=== PATIENT | male | born 1985 | race Caucasian/White ===

== ENCOUNTER 2021-02-04 11:03 | Outpatient (REF) | payer OTHER, SELFPAY ==
--- NOTE | ~2021-02-04 | XR_ITS ---
EXAMINATION: XR CHEST CLINICAL INFORMATION: Encounter for general adult medical exam COMPARISON: None TECHNIQUE: 2 views of the chest were obtained. FINDINGS: No significant abnormality is noted involving the heart, lungs, mediastinum, bony thorax or soft tissues. XR/XR chest 2V IMPRESSION: Unremarkable examination.
== END 2021-02-04 11:04 | disposition home or self-care (01) ==
LOC: HO.HMGCX 11:03
PROVIDERS: PCP Internal Medicine; Visit Provider Internal Medicine
DX: Z13.89 Encounter for screening for other disorder (principal)
CPT/HCPCS: 71046

== ENCOUNTER 2021-02-06 06:57 | Outpatient (REF) | payer OTHER, SELFPAY ==
[2021-02-06 11:33] LABS: Hematocrit 47.1 % (42-52); Hemoglobin 15.4 g/dl (14.0-18.0); Mean Corpuscular HGB Conc 32.7 g/dl (31.0-36.0); Mean Corpuscular Hemoglobin 30.3 pg (27.0-33.0); Mean Corpuscular Volume 92.5 fL (80-98); Mean Platelet Volume 11.1 fL (9.4-12.4); Platelet Count 319 X10*3/uL (160-400); Red Blood Count 5.09 X10*6/uL (4.60-5.80); Red Cell Distribution Width 13.3 % (11.0-16.0); White Blood Count 11.8 X10*3/uL (4.8-10.8)
[2021-02-06 11:49] LABS: Appearance Urine CLOUDY; Color Urine STRAW; Glucose Urine UA NEG (NEG); Leukocyte Esterase Urine NEG (NEG); Nitrite Urine NEG (NEG); Specific Gravity - Urine 1.025 (1.005-1.025); Urine Blood NEG (NEG); Urine Ketones NEG (NEG); Urine Protein NEG (NEG-TRACE)
[2021-02-06 11:54] LABS: Alanine Aminotransferase 39 U/L (0-40); Albumin Level 4.6 g/dL (3.5-5.0); Alkaline Phosphatase 59 U/L (39-117); Anion Gap 15 (12-20); Aspartate Amino Transferase 26 U/L (5-37); Bilirubin Total 0.5 mg/dL (0.0-1.0); Blood Urea Nitrogen 20 mg/dL (9-16); Calcium 9.8 mg/dL (8.4-10.2); Carbon Dioxide 25 mmol/L (22-29); Chloride 104 mmol/L (96-108); Cholesterol 231 mg/dL; Estimated Glomerular Filt Rate > 60; Glucose Fasting 93 mg/dL (60-99); HDL Cholesterol 46 mg/dL; LDL Cholesterol Calculated 146 mg/dl; Potassium 4.8 mmol/L (3.3-5.1); Sodium 139 mmol/L (135-145); Total Protein 7.6 g/dL (6.5-8.0); Triglycerides 196 mg/dL
[2021-02-06 12:10] LABS: Amorphous Sediment Urine 4+ /LPF; RBC Urine 0 /HPF (0); WBC Urine 0 /HPF (0-4)
[2021-02-06 12:17] LABS: TSH reflex Free T4 3.23 uIU/mL (0.32-4.0)
== END 2021-02-06 06:58 | disposition home or self-care (01) ==
LOC: HO.HMGCLDS 06:57
PROVIDERS: PCP Internal Medicine; Visit Provider Internal Medicine
DX: Z00.00 Encounter for general adult medical examination without abnormal findings (principal); G43.909 Migraine, unspecified, not intractable, without status migrainosus
CPT/HCPCS: 36415; 80053; 80061; 81001; 84443; 85027

== ENCOUNTER → 2021-02-17 07:00 | Outpatient (REF) | payer OTHER, SELFPAY | LOC: HO.SL 07:00 | PROVIDERS: PCP Internal Medicine; Visit Provider Internal Medicine | DX: G47.33 Obstructive sleep apnea (adult) (pediatric) (principal); G47.10 Hypersomnia, unspecified; I10 Essential (primary) hypertension; E66.3 Overweight | CPT/HCPCS: 95806 ==

== ENCOUNTER → 2021-06-09 13:21 | Outpatient (BNVA) | payer OTHER, SELFPAY | PROVIDERS: PCP Internal Medicine; Visit Provider Internal Medicine | DX: G47.33 Obstructive sleep apnea (adult) (pediatric) (principal); J45.909 Unspecified asthma, uncomplicated; E66.01 Morbid (severe) obesity due to excess calories; Z68.41 Body mass index [BMI] 40.0-44.9, adult | CPT/HCPCS: 99202 ==

== ENCOUNTER → 2021-11-10 09:07 | Outpatient (BNVA) | payer OTHER, SELFPAY | PROVIDERS: PCP Internal Medicine; Visit Provider Dietitian, Registered | DX: E66.01 Morbid (severe) obesity due to excess calories (principal); Z68.41 Body mass index [BMI] 40.0-44.9, adult; Z71.3 Dietary counseling and surveillance | CPT/HCPCS: 97802 ==

== ENCOUNTER → 2021-12-15 10:43 | Outpatient (BNVA) | payer OTHER, SELFPAY | PROVIDERS: PCP Internal Medicine; Visit Provider Internal Medicine | DX: E66.01 Morbid (severe) obesity due to excess calories (principal); Z68.41 Body mass index [BMI] 40.0-44.9, adult; G47.33 Obstructive sleep apnea (adult) (pediatric); J45.909 Unspecified asthma, uncomplicated | CPT/HCPCS: 97803; 99212 ==

== ENCOUNTER 2022-07-27 08:25 | Outpatient (REF) | payer OTHER, SELFPAY ==
[2022-07-27 11:31] LABS: MANUAL DIFF FLAG NO
[2022-07-27 11:42] LABS: Basophils Absolute Auto 0.1 X10*3/uL (0.0-0.2); Basophils Percent Auto 0.8 % (0-2); Eosinophils Absolute Auto 0.3 X10*3/uL (0.0-0.4); Eosinophils Percent Auto 2.6 % (0-4); Hematocrit 44.2 % (42.0-52.0); Hemoglobin 14.6 g/dl (14.0-18.0); Imm Gran Abs Auto 0.07 X10*3/uL (0.00-0.03); Imm Gran Pct Auto 0.6 % (0.0-0.4); Lymphocytes Absolute Auto 4.6 X10*3/uL (1.2-4.9); Lymphocytes Percent Auto 38.8 % (20-40); Mean Corpuscular Hemoglobin 30.6 pg (27.0-33.0); Mean Corpuscular Volume 92.7 fL (80.0-98.0); Mean Platelet Volume 10.9 fL (9.4-12.4); Monocytes Percent Auto 8.2 % (2-11); Neutrophils Absolute Auto 5.8 x10*3/uL (2.0-8.3); Platelet Count 333 X10*3/uL (160-400); Red Blood Count 4.77 X10*6/uL (4.60-5.80); Red Cell Distribution Width 13.6 % (11.0-16.0); White Blood Count 11.8 X10*3/uL (4.8-10.8)
[2022-07-27 12:29] LABS: Alanine Aminotransferase 29 U/L (0-40); Albumin Level 4.4 g/dL (3.5-5.0); Alkaline Phosphatase 61 U/L (39-117); Anion Gap 14 (12-20); Aspartate Amino Transferase 25 U/L (5-37); Bilirubin Total 0.6 mg/dL (0.0-1.0); Blood Urea Nitrogen 17 mg/dL (9-16); Calcium 9.2 mg/dL (8.4-10.2); Carbon Dioxide 24 mmol/L (22-29); Chloride 105 mmol/L (96-108); Cholesterol 215 mg/dL; Estimated Glomerular Filt Rate > 60; Glucose Fasting 100 mg/dL (60-99); HDL Cholesterol 38 mg/dL; LDL Cholesterol Calculated 145 mg/dl; Sodium 138 mmol/L (135-145); Total Protein 7.3 g/dL (6.5-8.0); Triglycerides 162 mg/dL
== END 2022-07-27 08:26 | disposition home or self-care (01) ==
LOC: HO.HMGCLDS 08:25
PROVIDERS: PCP Internal Medicine; Visit Provider Internal Medicine
DX: E66.3 Overweight (principal); E78.5 Hyperlipidemia, unspecified; I10 Essential (primary) hypertension
CPT/HCPCS: 36415; 80053; 80061; 85025

== ENCOUNTER 2025-03-20 12:49 | Outpatient (AMB) | payer OTHER, SELFPAY ==
[2025-03-20 13:06] VITALS: BP 128/80; PULSE 84; RESP 18; TEMP 36.7; O2SAT 98; BMI 43.7
--- NOTE | 2025-03-20 13:06 | MHC.PC.OV ---
Vital Signs 03/20/25 13:06 Height 5 ft 9 in Weight 296 lb BMI 43.7 BP 128/80 Blood Pressure Location Lt brachial Position Sitting Respiration 18 Pulse 84 Pulse Source Pulse Oximeter Temp 98.1 F Temp Source Oral Pulse Oximetry (%) 98 Oxygen Delivery Method Room Air Intake Visit Reasons: Annual exam Intake Note: Pt is here today for PE. Allergies bacitracin (From Triple Antibiotic) Allergy (Mild, Verified 03/20/25 13:36) Rash neomycin (From Triple Antibiotic) Allergy (Mild, Verified 03/20/25 13:36) Rash polymyxin B (From Triple Antibiotic) Allergy (Mild, Verified 03/20/25 13:36) Rash Medication List - Last Reconciled 03/20/25 by Josi Xavier MD fluticasone propionate 110 mcg/actuation (Flovent HFA) 1 puff inhalation Q12H Proventil HFA 90 mcg/actuation (albuterol sulfate) 2 puffs inhalation QID PRN NS Tobacco use date assessed: 03/20/25 Dental Screening Dental Screen Date: 03/20/25 Did you have a dental visit in the last 12 months?: No Did you have a dental problem in the last 6 months where you did not have access to dental care?: Yes Was dental information given to patient?: Yes HPI Annual exam HPI Details Pt presents for PE. Pt c/o L side lower mid back discomfort not related to activity on and off lasting a few minutes to hours, improved after stretching. Patient denies pain radiating to lower extremity dysuria urinary frequency hematuria abdominal pain. Patient reports using Flovent once a day for chronic asthma and having episodes of some congestion and wheezing on and off. Patient has not been using rescue inhaler. He smokes occasionally but not daily. 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 1. Little interest or pleasure in doing things: not at all 2. Feeling down, depressed, or hopeless: not at all 3. Trouble falling or staying asleep, or sleeping too much: several days 4. Feeling tired or having little energy: several days 5. Poor appetite or overeating: several days 6. Feeling bad about yourself - or that you are a failure or have let yourself or your family down: not at all 7. Trouble concentrating on things, such as reading the newspaper or watching television: not at all 8. Moving or speaking so slowly that other people could have noticed. Or the opposite - being so fidgety or restless that you have been moving around a lot more than usual: not at all 9. Thoughts that you would be better off or of hurting yourself in some way: not at all Total score: 3 Depression Screening Interpretation: Negative Depression Screening Done: Yes 44313 - PHQ-9 Billing: Yes Source: Developed by Drs. Gelacio Strickland, Clemencia Butterfield, Shoaib Fajardo and colleagues, with an educational herve from [employer]. Thrive Questionnaire Date Thrive assessed: 03/20/25 I am a: Patient What is your living situation today?: I have a steady place to live Within the past 12 months, did the food you bought not last and you didn't have the money to get more?: Never true Within the past 12 months, did you worry whether your food would run out before you got money to buy more?: Never true Do you have trouble paying for medicines?: No Do you have trouble getting transportation to medical appointments?: No Do you have trouble paying your heating and electricity bill?: No Do you have trouble taking care of your child, family member or friend?: No Do you have trouble with day-to-day activities such as bathing, preparing meals, shopping, managing finances, etc.?: No Are you currently unemployed and looking for a job?: No Are you interested in more education?: No Please select the resources that you would like help with: None Currently or been in a relationship where the following occur: No concerns reported THRIVE Score: 0 AUDIT C Alcohol Use Questionnaire (AUDIT-C) 1. How often do you have a drink containing alcohol?: Never Total Score: 0 XIOMARA-7 AMB Questionnaire XIOMARA-7 Date XIOMARA - 7 assessed: 03/20/25 Feeling nervous, anxious, or on edge: 0 = Not at all Not being able to stop or control worryin = Not at all Worrying too much about different things: 0 = Not at all Trouble relaxin = Not at all Being so restless that it is hard to sit still: 0 = Not at all Becoming easily annoyed or irritable: 0 = Not at all Feeling afraid as if something awful might happen: 0 = Not at all Total XIOMARA-7 score (0-4 normal; 5-9 mild; 10-14 moderate; 15-21 severe): 0 Source: Developed by Drs. Gelacio Strickland, Clemencia Butterfield, Shoaib Fajardo and colleagues, with an educational herve from [employer]. XIOMARA-7 Assessment Billing XIOMARA-7 Assessment Tool: XIOMARA-7 Assessment 51520 Review of Systems Const All systems reviewed & are unremarkable except as noted in HPI and below Eyes Reports no additional complaints ENT Reports no additional complaints Card Reports no additional complaints Resp Reports no additional complaints GI Reports no additional complaints Reports no additional complaints Physical exam (Primary Care) Vital Signs: Last Vital Signs Temp 98.1 F 03/20/25 13:06 Pulse 84 03/20/25 13:06 Resp 18 03/20/25 13:06 BP 128/80 03/20/25 13:06 Pulse Ox 98 03/20/25 13:06 Oxygen Delivery Method Room Air 03/20/25 13:06 BMI result Body Mass Index 43.7 Tobacco/Smoking Status: Tobacco use Status Tobacco use date assessed 03/20/25 03/20/25 13:24 Patient Tobacco Use Status Current someday Tobacco 03/20/25 13:40 Tobacco use type Cigarette 03/20/25 13:40 e-Cigarette/Vaping Use Never Used 03/20/25 13:07 PHQ-9: PHQ-9 Score PHQ-9: Total score 3 03/20/25 13:54 Depression Screening Interpretation: Negative Thrive Assessment: Date of Thrive Assessment Date Thrive assessed 03/20/25 03/20/25 13:24 Currently or been in a relationship where the following occur: No concerns reported Const General: no acute distress HENMT Head: Yes normal to inspection General nose exam: Normal external nose present Face and sinus: Yes normal facial exam Throat: Yes posterior oropharynx normal Eyes General: appearance normal, both eyes and all related structures Neck Neck: Yes no lymphadenopathy and Yes supple Resp Effort & Inspection: normal respiratory effort Auscultation: clear to auscultation bilaterally Cardio Rhythm: regular rhythm Heart sounds: S1 normal heart sound present and S2 normal heart sound present GI Inspection: Yes normal to inspection Palpation (GI): Soft to palpation Percussion: Yes normal to percussion Auscultation: normal bowel sounds Back/Spine/Pelvis Other: This is a full range of motion lumbar spine no paraspinal tenderness, straight leg rising 90 degrees bilaterally Thoracic/Lumbar Spine: thoracic and lumbar spine normal to inspection Coding Level of Care Code Est Pt Prev Care 40-64y(16446) Diagnoses Annual physical exam Z00.00 Hyperlipidemia E78.5 LUPE (obstructive sleep apnea) G47.33 Asthma J45.909 Morbid obesity E66.01 Additional Codes XIOMARA-7 Assessment Billing - XIOMARA-7 Assessment Tool: XIOMARA-7 Assessment 75604 ([id number]) PHQ-9 - 42148 - PHQ-9 Billing: Yes ([id number]) Assessment & Plan Assessment & Plan (1) Annual physical exam: Code(s): Z00.00 - Encounter for general adult medical examination without abnormal findings Category: Medical Plan: well balanced diet, exercise, weight loss discussed. Patient will return for fasting blood work (2) Hyperlipidemia: Code(s): E78.5 - Hyperlipidemia, unspecified Category: Medical Plan: low cholesterol diet, increase physical activity and weight loss discussed with the patient (3) LUPE (obstructive sleep apnea): Comment: Moderately severe obstructive sleep apnea, with TST AHI 19.7 and moderate amount of snoring. HAS BEEN VERY COMPLIANT TO USE CPAP. Current settings: Nasal pillows , APAP setting of 6-16 cm. Working very well. Code(s): G47.33 - Obstructive sleep apnea (adult) (pediatric) Category: Medical Plan: Continue CPAP (4) Asthma: Comment: He has mild, chronic bronchial asthma, well controlled with current medication. [place] : Flovent-110 1 inhalation b.i.d. ProAir HFA 2 puffs Q 4-6 hours only p.r.n.. Code(s): J45.909 - Unspecified asthma, uncomplicated Category: Medical Plan: Change Flovent to Breo 100/25. Patient was advised to use albuterol as needed and he will follow-up in 2 months (5) Morbid obesity: Code(s): E66.01 - Morbid (severe) obesity due to excess calories Category: Medical Plan: Decreasing caloric intake increasing physical activity discussed with the patient Orders: Orders Comprehensive [place]. Panel Fast Today E78.5 - Hyperlipidemia, unspecified, Z00.00 - Encounter for general adult medical examination without abnormal findings Lipid Panel Today E78.5 - Hyperlipidemia, unspecified, Z00.00 - Encounter for general adult medical examination without abnormal findings Complete Blood Count Auto Diff Today E78.5 - Hyperlipidemia, unspecified, Z00.00 - Encounter for general adult medical examination without abnormal findings Hemoglobin A1c Today E78.5 - Hyperlipidemia, unspecified, Z00.00 - Encounter for general adult medical examination without abnormal findings UA w Microscopic Today E78.5 - Hyperlipidemia, unspecified, Z00.00 - Encounter for general adult medical examination without abnormal findings Medications: New fluticasone furoate-vilanterol 100-25 mcg/dose (Breo Ellipta) 1 inh inhalation DAILY 60 ea 2RF Changed From Proventil HFA 90 mcg/actuation (albuterol sulfate) 2 puffs inhalation QID PRN 6.7 grams 3RF shortness of breath or wheezing NS To albuterol sulfate 90 mcg/actuation (Proventil HFA) 2 puffs inhalation QID PRN 6.7 grams 3RF shortness of breath or wheezing 30 days
== END 2025-03-20 15:08 | disposition home or self-care (01) ==
LOC: HO.HMCC 12:50
PROVIDERS: PCP Internal Medicine; Visit Provider Internal Medicine
DX: Z00.00 Encounter for general adult medical examination without abnormal findings (principal); E66.01 Morbid (severe) obesity due to excess calories; Z68.41 Body mass index [BMI] 40.0-44.9, adult; E78.5 Hyperlipidemia, unspecified; G47.33 Obstructive sleep apnea (adult) (pediatric); J45.909 Unspecified asthma, uncomplicated

== ENCOUNTER → 2025-03-20 12:49 | Outpatient (BNVA) | payer OTHER, SELFPAY | PROVIDERS: PCP Internal Medicine; Visit Provider Internal Medicine | DX: Z00.00 Encounter for general adult medical examination without abnormal findings (principal); M54.50 Low back pain, unspecified; J45.909 Unspecified asthma, uncomplicated; E78.5 Hyperlipidemia, unspecified; G47.33 Obstructive sleep apnea (adult) (pediatric); E66.01 Morbid (severe) obesity due to excess calories; F17.210 Nicotine dependence, cigarettes, uncomplicated; Z68.41 Body mass index [BMI] 40.0-44.9, adult | CPT/HCPCS: 96127; 99396 ==

== ENCOUNTER 2025-05-20 08:45 | Outpatient (REF) | payer OTHER, SELFPAY ==
[2025-05-20 10:26] LABS: MANUAL DIFF FLAG NO
[2025-05-20 10:41] LABS: Hematocrit 45.8 % (42.0-52.0); Hemoglobin 14.9 g/dl (14.0-18.0); Imm Gran Abs Auto 0.08 X10*3/uL (0.00-0.03); Imm Gran Pct Auto 0.7 % (0.0-0.4); Lymphocytes Absolute Auto 3.9 X10*3/uL (1.2-4.9); Mean Corpuscular HGB Conc 32.5 g/dl (31.0-36.0); Mean Corpuscular Hemoglobin 30.0 pg (27.0-33.0); Mean Corpuscular Volume 92.2 fL (80.0-98.0); NRBC Abs Auto 0.000 X10*3/uL (0.0-0.012); NRBC Pct Auto 0.0 /100WBC (0.0-0.2); Platelet Count 308 X10*3/uL (160-400); Red Blood Count 4.97 X10*6/uL (4.60-5.80); White Blood Count 11.1 X10*3/uL (4.8-10.8)
[2025-05-20 11:05] LABS: Alanine Aminotransferase 27 U/L (0-40); Albumin Level 4.7 g/dL (3.5-5.0); Alkaline Phosphatase 76 U/L (39-117); Anion Gap 13 (12-20); Aspartate Amino Transferase 28 U/L (5-37); Blood Urea Nitrogen 16 mg/dL (9-16); Calcium 9.3 mg/dL (8.4-10.2); Carbon Dioxide 25 mmol/L (22-29); Chloride 108 mmol/L (96-108); Cholesterol 211 mg/dL (<200); Estimated Glomerular Filt Rate > 60; HDL Cholesterol 42 mg/dL (>40); Potassium 4.0 mmol/L (3.3-5.1); Sodium 142 mmol/L (135-145); Total Protein 7.7 g/dL (6.5-8.0); Triglycerides 174 mg/dL (<150)
== END 2025-05-20 08:46 | disposition home or self-care (01) ==
LOC: HO.HMGCLDS 08:45
PROVIDERS: PCP Internal Medicine; Visit Provider Internal Medicine
DX: Z00.00 Encounter for general adult medical examination without abnormal findings (principal); E78.5 Hyperlipidemia, unspecified
CPT/HCPCS: 36415; 80053; 80061; 83036; 85025

== ENCOUNTER 2025-05-21 11:42 | Outpatient (AMB) | payer OTHER, SELFPAY ==
--- NOTE | 2025-05-21 11:44 | A.OFFPC_ITS ---
Vital Signs 05/21/25 11:45 Height 5 ft 9 in Weight 298 lb BMI 44.0 BP 126/76 Blood Pressure Location Lt brachial Position Sitting Respiration 17 Pulse 82 Pulse Source Pulse Oximeter Temp 97.3 F Temp Source Oral Pulse Oximetry (%) 97 Oxygen Delivery Method Room Air Intake Visit Reasons: 2 month follow up Intake Note: Pt is here today for 2 months follow up visit. Allergies bacitracin (From Triple Antibiotic) Allergy (Mild, Verified 05/21/25 11:48) Rash neomycin (From Triple Antibiotic) Allergy (Mild, Verified 05/21/25 11:48) Rash polymyxin B (From Triple Antibiotic) Allergy (Mild, Verified 05/21/25 11:48) Rash Medication List - Last Reconciled 05/21/25 by Josi Xavier MD albuterol sulfate 90 mcg/actuation (Proventil HFA) 2 puffs inhalation QID PRN 30 days fluticasone furoate-vilanterol 100-25 mcg/dose (Breo Ellipta) 1 inh inhalation DAILY Tobacco use date assessed: 05/21/25 Dental Screening Dental Screen Date: 03/20/25 HPI 2 month follow up HPI Details Patient presents for the follow-up of chronic asthma controlled on Breo. Patient complains of intermittent chronic left-sided lower back pain occasionally radiating to left buttock worse in the afternoon after sitting on a couch for few hours. Patient denies pain radiating to lower extremities weakness or numbness in extremities. 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 Patient Tobacco Use Status: Current someday Tobacco user Tobacco use type: Cigarette e-Cigarette/Vaping Use: Never Used service: No Current occupational status: employed Cognitive needs: No Hearing needs: No Vision needs: No Questionnaire Thrive Questionnaire Date Thrive assessed: 03/20/25 I am a: Patient What is your living situation today?: I have a steady place to live Within the past 12 months, did the food you bought not last and you didn't have the money to get more?: Never true Within the past 12 months, did you worry whether your food would run out before you got money to buy more?: Never true Do you have trouble paying for medicines?: No Do you have trouble getting transportation to medical appointments?: No Do you have trouble paying your heating and electricity bill?: No Do you have trouble taking care of your child, family member or friend?: No Do you have trouble with day-to-day activities such as bathing, preparing meals, shopping, managing finances, etc.?: No Are you currently unemployed and looking for a job?: No Are you interested in more education?: No Currently or been in a relationship where the following occur: No concerns reported THRIVE Score: 0 AUDIT C Alcohol Use Questionnaire (AUDIT-C) 1. How often do you have a drink containing alcohol?: Never 3. How often do you have six or more drinks on one occasion?: Never Total Score: 0 XIOMARA-7 AMB Questionnaire XIOMARA-7 Date XIOMARA - 7 assessed: 03/20/25 Source: Developed by Drs. Gelacio Strickland, Clemencia Butterfield, Shoaib Fajardo and colleagues, with an educational herve from [employer]. Review of Systems Const All systems reviewed & are unremarkable except as noted in HPI and below Eyes Reports no additional complaints ENT Reports no additional complaints Card Reports no additional complaints Resp Reports no additional complaints GI Reports no additional complaints Physical exam (Primary Care) Vital Signs: Last Vital Signs Temp 97.3 F 05/21/25 11:45 Pulse 82 05/21/25 11:45 Resp 17 05/21/25 11:45 BP 126/76 05/21/25 11:45 Pulse Ox 97 05/21/25 11:45 Oxygen Delivery Method Room Air 05/21/25 11:45 BMI result Body Mass Index 44.0 Tobacco/Smoking Status: Tobacco use Status Tobacco use date assessed 05/21/25 05/21/25 11:51 Patient Tobacco Use Status Current someday Tobacco 05/21/25 11:51 Tobacco use type Cigarette 05/21/25 11:51 e-Cigarette/Vaping Use Never Used 05/21/25 11:51 Thrive Assessment: Date of Thrive Assessment Date Thrive assessed 03/20/25 05/21/25 11:51 Currently or been in a relationship where the following occur: No concerns reported Const General: no acute distress HENMT Head: Yes normal to inspection Mouth: Normal oral and palatal mucosa present Eyes General: appearance normal, both eyes and all related structures Neck Neck: Yes no lymphadenopathy and Yes supple Resp Effort & Inspection: normal respiratory effort Auscultation: clear to auscultation bilaterally Cardio Rhythm: regular rhythm Heart sounds: S1 normal heart sound present and S2 normal heart sound present Back/Spine/Pelvis Other: Straight leg rising 90 degrees bilaterally Thoracic/Lumbar Spine: thoracic and lumbar spine normal to inspection Coding Level of Care Code Est Pt Level 4 (07121) Diagnoses Lower back pain M54.50 Chronic seborrheic dermatitis L21.9 Hyperlipidemia E78.5 Hyperglycemia R73.9 Assessment & Plan Assessment & Plan (1) Lower back pain: Code(s): M54.50 - Low back pain, unspecified Category: Medical Plan: For chronic lower back pain referred to physical therapy (2) Chronic seborrheic dermatitis: Code(s): L21.9 - Seborrheic dermatitis, unspecified Category: Medical Plan: Referred to dermatology. Patient was advised to try [id number] salicylic acid face wash and topical ketoconazole (3) Hyperlipidemia: Code(s): E78.5 - Hyperlipidemia, unspecified Category: Medical Plan: Low-cholesterol diet increase physical activity weight loss discussed with the patient (4) Hyperglycemia: Code(s): R73.9 - Hyperglycemia, unspecified Category: Medical Plan: A1c was 6.1, ADA diet increase exercise weight loss discussed with the patient. Follow-up in 4 months with a fasting labs before Orders: Orders PT Evaluation and Treatment Today M54.50 - Low back pain, unspecified Comprehensive [place]. Panel Fast 4 Months E78.5 - Hyperlipidemia, unspecified, R73.9 - Hyperglycemia, unspecified Hemoglobin A1c 4 Months E78.5 - Hyperlipidemia, unspecified, R73.9 - Hyperglycemia, unspecified Lipid Panel 4 Months E78.5 - Hyperlipidemia, unspecified, R73.9 - Hyperglycemia, unspecified Microalbumin, Random (w Creat) 4 Months E78.5 - Hyperlipidemia, unspecified, R73.9 - Hyperglycemia, unspecified Referrals Dermatology Referral L21.9 - Seborrheic dermatitis, unspecified
[2025-05-21 11:45] VITALS: BP 126/76; PULSE 82; RESP 17; TEMP 36.3; O2SAT 97; BMI 44.0
== END 2025-05-21 12:28 | disposition home or self-care (01) ==
LOC: HO.HMCC 11:43
PROVIDERS: PCP Internal Medicine; Visit Provider Internal Medicine
DX: M54.50 Low back pain, unspecified (principal); L21.9 Seborrheic dermatitis, unspecified; E78.5 Hyperlipidemia, unspecified; R73.9 Hyperglycemia, unspecified

== ENCOUNTER → 2025-05-21 11:42 | Outpatient (BNVA) | payer OTHER, SELFPAY | PROVIDERS: PCP Internal Medicine; Visit Provider Internal Medicine | DX: M54.50 Low back pain, unspecified (principal); G89.29 Other chronic pain; E78.5 Hyperlipidemia, unspecified; R73.9 Hyperglycemia, unspecified; L21.9 Seborrheic dermatitis, unspecified; J45.909 Unspecified asthma, uncomplicated; Z72.0 Tobacco use | CPT/HCPCS: 99212 ==